=== PATIENT | male | born 1960 | race Caucasian/White ===

== ENCOUNTER 2018-10-25 07:16 | Outpatient (CLI) | payer OTHER ==
[~2018-10-25 07:16] MED LIST: COZAAR100 MG
== END 2018-10-25 07:20 | disposition home or self-care (01) ==
LOC: SONOGRAMA 07:16
DX: E78.2 Mixed hyperlipidemia (principal); R73.01 Impaired fasting glucose; E55.9 Vitamin D deficiency, unspecified; Z12.11 Encounter for screening for malignant neoplasm of colon; N40.0 Benign prostatic hyperplasia without lower urinary tract symptoms; E04.1 Nontoxic single thyroid nodule; R94.5 Abnormal results of liver function studies; E66.1 Drug-induced obesity

== ENCOUNTER → 2018-11-02 | Outpatient (CLI) | payer OTHER | END | disposition home or self-care (01) | LOC: MRI 11:25 | DX: E78.2 Mixed hyperlipidemia (principal); E66.01 Morbid (severe) obesity due to excess calories; E55.9 Vitamin D deficiency, unspecified; R73.01 Impaired fasting glucose | CPT/HCPCS: 70552 ==

== ENCOUNTER → 2018-11-02 | Outpatient (CLI) | payer OTHER | END | disposition home or self-care (01) | LOC: NUCLEAR 09:58 | DX: E78.2 Mixed hyperlipidemia (principal); R51 Headache; I67.89 Other cerebrovascular disease; R73.01 Impaired fasting glucose; F01.51 Vascular dementia, unspecified severity, with behavioral disturbance ==

== ENCOUNTER → 2018-11-10 | Outpatient (CLI) | payer OTHER | END | disposition home or self-care (01) | LOC: NUCLEAR 08:53 | DX: G30.9 Alzheimer's disease, unspecified (principal); G30.1 Alzheimer's disease with late onset | CPT/HCPCS: 78607; A9557 ==